=== PATIENT | male | born 2000 | race Two or more races ===

== ENCOUNTER 2020-08-03 08:51 | Emergency (ER) | payer OTHER ==
[~2020-08-03] VITALS: Ht 177.8 cm; Wt 79.4 kg
[2020-08-03 08:54] VITALS: BP 144/92
[2020-08-03] MEDS ORDERED: METHOCARBAMOL 500 MG TAB PO ONE (09:30)
[2020-08-03] MEDS ORDERED: IBUPROFEN 800 MG TAB PO ONE (09:30)
== END 2020-08-03 11:02 | disposition home or self-care (01) ==
LOC: ER 08:51
DX: S16.1XXA Strain of muscle, fascia and tendon at neck level, initial encounter (principal); G44.319 Acute post-traumatic headache, not intractable; V49.49XA Driver injured in collision with other motor vehicles in traffic accident, initial encounter; Y92.488 Other paved roadways as the place of occurrence of the external cause; Y93.89 Activity, other specified; Y99.8 Other external cause status
CPT/HCPCS: 70450; 72070; 72125

== ENCOUNTER 2021-11-19 22:10 | Emergency (ER) | payer SELFPAY ==
[~2021-11-19] VITALS: Ht 177.8 cm; Wt 72.6 kg
[2021-11-19] MEDS ORDERED: MORPHINE SULFATE 4 MG/ML SYR/VIAL IV ONE (23:15)
[2021-11-20 00:40] VITALS: BP 127/70
== END 2021-11-21 01:14 | disposition home or self-care (01) ==
LOC: ER 22:10
DX: M54.59 Other low back pain (principal); M25.552 Pain in left hip; W11.XXXA Fall on and from ladder, initial encounter; Y93.89 Activity, other specified; Y92.89 Other specified places as the place of occurrence of the external cause; Y99.8 Other external cause status
CPT/HCPCS: 71045; 72100; 72192; 73502; 96374; 99284; J2270